=== PATIENT | male | born 2000 | race Caucasian/White ===

== ENCOUNTER 2021-11-17 15:48 | Emergency (ER) | payer OTHER, SELFPAY ==
[2021-11-17 16:37] VITALS: TEMP 37.2; BMI 30.7
--- NOTE | 2021-11-17 16:41 | DI.RAD.S_ITS ---
PROCEDURE: XR FINGER RT MIN 2V INDICATIONS: nail through tip of R 2nd finger TECHNIQUE: AP hand, 2 views of the right 2nd finger(s) acquired. COMPARISON: None. FINDINGS: Nail embedded in the right 2nd digit at the level of the DIP joint. The nail appears to be within the DIP. There is no definite fracture although the nail appears to abut both the distal and middle phalanges. IMPRESSION: Nail embedded in the distal right 2nd digit appears to be in the right 2nd DIP joint. Dictated by: Pj Wood M.D. on 11/17/2021 at 16:58 Approved by: Pj Wood M.D. on 11/17/2021 at 16:59
[2021-11-17] MEDS: OXYCODONE/ACETAMINOPHEN 5/325 TABLET 1 TAB PO (17:15)
[2021-11-17] MEDS: KETOROLAC 30 MG/ML VIAL 15 MG IM (17:16)
[2021-11-17] MEDS: TET,DIPH,PERTUSS(ACELL),VAC/PF 0.5 ML SYRINGE IM (17:17)
--- NOTE | 2021-11-17 17:37 | DI.RAD.S_ITS ---
PROCEDURE: XR FINGER RT MIN 2V INDICATIONS: removed Nail TECHNIQUE: PA hand, 2 views of the index finger acquired. COMPARISON: [facility], , XR FINGER RT MIN 2V, 11/17/2021, 16:40. FINDINGS: Bones: No acute fractures or dislocations. No suspicious bony lesions. Soft tissues: No suspicious soft tissue calcifications. The previously seen metallic foreign body is been removed. Mild skin irregularity and soft tissue edema are seen in the distal 2nd finger. IMPRESSION: Previously seen metallic foreign body has been removed. No acute osseous fracture identified. Dictated by: Ramesh Shi M.D. on 11/17/2021 at 18:00 Approved by: Ramesh Shi M.D. on 11/17/2021 at 18:03
--- NOTE | 2021-11-17 17:51 | ED.UPPEXIN ---
HPI - Extremity Injury (Upper) <ANTONIO Sotomayor - Last Filed: 11/17/21 18:17> General Chief Complaint: Extremity Injury, Upper Stated Complaint: shot nail into rt index finger Time Seen by Provider: 11/17/21 16:50 Source: patient Mode of arrival: Ambulatory Related Data Previous Rx's Medication Instructions Recorded cephalexin 500 mg capsule 500 mg PO BID 5 days #10 caps 11/17/21 hydrocodone 5 mg-acetaminophen 325 1 tab PO BID PRN pain #10 tabs 11/17/21 mg tablet mupirocin 2 % topical ointment 1 applic topical BID #15 grams 11/17/21 Allergies Allergy/AdvReac Type Severity Reaction Status Date / Time No Known Drug Allergies Allergy Verified 11/17/21 16:40 Patient History <ANTONIO Sotomayor - Last Filed: 11/17/21 18:17> Social History Smoking Status: Current every day smoker Smoking Status: Current every day smoker alcohol intake frequency: 0-2 drinks per day Alcohol type: beer Substance Use Type: marijuana Exam <ANTONIO Sotomayor - Last Filed: 11/17/21 18:17> Initial Vital Signs Initial Vital Signs: Vital Signs Temperature 98.9 F 11/17/21 16:37 <Lynn Negro DO - Last Filed: 11/19/21 17:48> Initial Vital Signs Initial Vital Signs: Vital Signs Temperature 98.9 F 11/17/21 16:37 Procedures <ANTONIO Sotomayor - Last Filed: 11/17/21 18:17> Foreign Body OTHER Foreign Body Removal Site: right and hand Description of foreign body: other (Nail) Sedation/Analgesia: other (Digital block with lidocaine and Toradol and Percocet) Technique: manual removal (Removal with Corrina, finger was splinted above and below the nail with tongue depressors and was pulled straight down in linear motion with no complication, patient tolerated well) Confirmed by:: direct visualization and radiograph Complications: none Post-procedure exam: awake, alert Neurovascular: normal capillary fill and distal light touch sensation intact Course <ANTONIO Sotomayor - Last Filed: 11/17/21 18:17> Orders Ordered: Discontinued Medications Bacitracin (Bacitracin Oint 0.9 Gm Pckt) 1 applic TOP NOW ONE Stop: 11/17/21 16:54 Last Admin: 11/17/21 18:14 Dose: 1 applic Documented By: KARI Diphtheria/Tetanus/Acell Pertussis (Tet,Diph,Pertuss(Acell),Vac/Pf 0.5 Ml Syringe) 0.5 ml IM .ONCE ONE Stop: 11/17/21 16:42 Last Admin: 11/17/21 17:17 Dose: 0.5 ml Documented By: AMRITA Ketorolac Tromethamine (Ketorolac 30 Mg/Ml Vial) 15 mg IM NOW ONE Stop: 11/17/21 16:54 Last Admin: 11/17/21 17:16 Dose: 15 mg Documented By: AMRITA Lidocaine HCl (Lidocaine 2% Inj Mdv 10ml) 1 mg SUBCUT NOW ONE Stop: 11/17/21 16:54 Last Admin: 11/17/21 17:53 Dose: Not Given Documented By: KARI Lidocaine HCl (Lidocaine 1% 20 Ml) 20 ml INJ INTRA-OP ONE Stop: 11/17/21 17:11 Last Admin: 11/17/21 17:55 Dose: 20 ml Documented By: KARI Oxycodone/Acetaminophen (Oxycodone/Acetaminophen 5/325 Tablet) 1 tab PO NOW ONE Stop: 11/17/21 16:54 Last Admin: 11/17/21 17:15 Dose: 1 tab Documented By: AMRITA Vital Signs Vital signs: Vital Signs - 8 hr 11/17/21 16:37 Temperature 98.9 F <Lynn Negro, DO - Last Filed: 11/19/21 17:48> Orders Ordered: Discontinued Medications Bacitracin (Bacitracin Oint 0.9 Gm Pckt) 1 applic TOP NOW ONE Stop: 11/17/21 16:54 Last Admin: 11/17/21 18:14 Dose: 1 applic Documented By: KARI Diphtheria/Tetanus/Acell Pertussis (Tet,Diph,Pertuss(Acell),Vac/Pf 0.5 Ml Syringe) 0.5 ml IM .ONCE ONE Stop: 11/17/21 16:42 Last Admin: 11/17/21 17:17 Dose: 0.5 ml Documented By: AMRITA Ketorolac Tromethamine (Ketorolac 30 Mg/Ml Vial) 15 mg IM NOW ONE Stop: 11/17/21 16:54 Last Admin: 11/17/21 17:16 Dose: 15 mg Documented By: AMRITA Lidocaine HCl (Lidocaine 2% Inj Mdv 10ml) 1 mg SUBCUT NOW ONE Stop: 11/17/21 16:54 Last Admin: 11/17/21 17:53 Dose: Not Given Documented By: KARI Lidocaine HCl (Lidocaine 1% 20 Ml) 20 ml INJ INTRA-OP ONE Stop: 11/17/21 17:11 Last Admin: 11/17/21 17:55 Dose: 20 ml Documented By: KARI Oxycodone/Acetaminophen (Oxycodone/Acetaminophen 5/325 Tablet) 1 tab PO NOW ONE Stop: 11/17/21 16:54 Last Admin: 11/17/21 17:15 Dose: 1 tab Documented By: AMRITA Vital Signs Vital signs: Vital Signs - 8 hr 11/17/21 16:37 Temperature 98.9 F MDM - Extremity Injury (Upper) <Lilliam Wing, [facility] - Last Filed: 11/17/21 18:17> Imaging Data Extremity x-ray #1: Radiologist's Impression: PROCEDURE:? XR FINGER RT MIN 2V ? INDICATIONS:? nail through tip of R 2nd finger ? TECHNIQUE:? AP hand, 2 views of the right 2nd finger(s) acquired.? ? COMPARISON:? None. ? FINDINGS:? ? Nail embedded in the right 2nd digit at the level of the DIP joint.? The nail appears to be within the DIP.? There is no definite fracture although the nail appears to abut both the distal and middle phalanges. ? IMPRESSION:? Nail embedded in the distal right 2nd digit appears to be in the right 2nd DIP joint.? ? ? Dictated by: Pj Wood M.D. on 11/17/2021 at 16:58 ? ? Approved by: Pj Wood M.D. on 11/17/2021 at 16:59 ? Extremity x-ray #2: Radiologist's Impression: PROCEDURE:? XR FINGER RT MIN 2V ? INDICATIONS:? removed Nail ? TECHNIQUE:? PA hand, 2 views of the index finger acquired.? ? COMPARISON:? [facility], XR FINGER RT MIN 2V, 11/17/2021, 16:40. ? FINDINGS:? ? Bones:? No acute fractures or dislocations.? No suspicious bony lesions.? ? Soft tissues:? No suspicious soft tissue calcifications.? The previously seen metallic foreign body is been removed.? Mild skin irregularity and soft tissue edema are seen in the distal 2nd finger. ? IMPRESSION:? Previously seen metallic foreign body has been removed.? No acute osseous fracture identified. ? ? Dictated by: Ramesh Shi M.D. on 11/17/2021 at 18:00 ? ? Approved by: Ramesh Shi M.D. on 11/17/2021 at 18:03 ? MDM Narrative Medical decision making narrative: This is a 21-year-old male presents to the emergency department with a full-size nail imbedded through the D IP joint of his right hand 2nd digit. This happened with a nail gun earlier today at noon when he was helping his grandmother. X-ray shows a nail embedded in the distal right 2nd digit through the D IP joint, this was removed with a Corrina and splinted with tongue depressors. Nail came out in 1 Hernandez post. Patient tolerated well after a digital block with lidocaine 1%. No foreign body, no fracture identified on repeat x-ray, patient's wound was irrigated with normal saline, topical mupirocin ointment and Band-Aid with finger splint was applied. Patient tolerated well, his tetanus was updated today. Encouraged to follow-up with [facility] if he has ongoing finger pain. Flexion extension was intact to all joints in the right 2nd digit. Patient is appropriate and amenable to discharge home. Vital signs are stable on repeat examination is unremarkable. Patient has been informed of results. Patient has been given strict return to ER precautions for any new or worsening symptoms. Patient understands to follow up closely with outpatient providers as instructed. Patient understands plan and agrees to discharge home. All questions and concerns answered at this time. Discharge Plan Departure Patient Disposition: Home Clinical Impression: Foreign body finger, Embedded foreign body Activity Restrictions/Additional Instructions: *You have been diagnosed with putting a nail through the distal interphalangeal joint of your right hand 2nd digit. You received a tetanus today, this is good for the next 10 years. Please use ibuprofen and Tylenol as needed for pain. Please take this antibiotic twice a day for next 5 days to help prevent infection. Use topical antibiotic ointment, please keep your wound covered with a Band-Aid at while at work. Please follow-up at [facility] for your finger if it does not heal normally in the next 1-2 weeks. Please ice it, keep it elevated and covered, and return to work as it is starting to feel better. There is no fracture of the bone on your 2nd x-ray, this is quite impressive, contrast and wear the splint as long as it is helpful, it should heal in the next 1-2 weeks. Please follow-up at [facility] if you have ongoing difficulty with moving his finger, please keep the splint on at least for the next 2 weeks. *What to do: *Please continue to take your regular medications as directed. [x ] New medication prescriptions sent to your pharmacy: [[facility] ] [ ] New medication written as a paper prescription [ ] No new medications given *Please follow up with your primary care provider in 2-3 days, call for an appointment. Let them know you were seen in the Emergency Department and that we asked that you be seen for follow-up. We will electronically transmit a record of today's note if your PCP is in our system *If you do not have a primary care provider please contact [phone] to establish care with one of [facility] primary care providers. *Return to Emergency Department if you should have any new, worsening, or concerning symptoms, such as [fever greater than 101F, chills, worsening pain, persistent vomiting or other bothersome symptoms]. Prescriptions: New mupirocin 2 % ointment 1 applic topical BID Qty: 15 0RF cephalexin 500 mg capsule 500 mg PO BID 5 Days Qty: 10 0RF hydrocodone-acetaminophen 5-325 mg tablet 1 tab PO BID PRN (Reason: pain) Qty: 10 0RF Referrals: [facility] [Provider Group] Visit Report Forms: Patient Portal/API <Lynn Negro DO - Last Filed: 11/19/21 17:48> Cosign ED Attending Taniaature Attestation: I was immediately available in the department for consultation. Documentation has been reviewed. I agree with assessment and plan.
[2021-11-17] MEDS: LIDOCAINE 1% 20 ML INJ (17:55)
[2021-11-17] MEDS: BACITRACIN OINT 0.9 GM PCKT 1 APPLIC TOP (18:14)
[2021-11-17 18:23] VITALS: BP 108/60; PULSE 74; RESP 12; O2SAT 98
== END 2021-11-17 18:34 | disposition home or self-care (01) ==
PROVIDERS: Emergency Provider Nurse Practitioner Critical Care Medicine
DX: S60.459A Superficial foreign body of unspecified finger, initial encounter (principal); Z18.9 Retained foreign body fragments, unspecified material; Z23 Encounter for immunization
CPT/HCPCS: 73140; 90471; 96372; 99283; 90715; J1885